=== PATIENT | female | born 1995 | race Two or more races ===

== ENCOUNTER 2020-05-10 00:21 | Emergency (ER) | payer OTHER ==
[~2020-05-10] VITALS: Ht 165.1 cm; Wt 58.1 kg
[2020-05-10 00:27] VITALS: BP 148/89
== END 2020-05-10 00:43 ==
LOC: ER 00:24
DX: Z02.89 Encounter for other administrative examinations (principal); Z88.6 Allergy status to analgesic agent; Z88.5 Allergy status to narcotic agent